=== PATIENT | female | born 1980 | race Asian ===

== ENCOUNTER 2018-02-25 09:38 | Emergency (ER) | payer OTHER, SELFPAY ==
--- NOTE | 2018-02-25 09:42 | ED.WOUNDLAC ---
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 She was wearing gloves in grabbed what was likely a used diabetic went set and was poked in her finger which then bled. Her right thumb is what was affected and she had copious washing prior to her arrival. She was sent by her work place for blood borne pathogen panel Onset (ago): hour(s) Extremity Location: Right: hand Place: work Patient tetanus UTD: Yes Context: accidental Associated symptoms: none Related Data Previous Rx's Medication Instructions Recorded ketorolac 10 mg PO Q6HP PRN #15 tab 03/12/17 ondansetron [Zofran ODT] 4 mg SUBLINGUAL Q6HP PRN #20 odt 03/12/17 tamsulosin [Flomax] 0.4 mg PO QDAY #10 cap 03/12/17 Allergies Allergy/AdvReac Type Severity Reaction Status Date / Time No Known Allergies Allergy Uncoded 12/27/17 12:45 Review of Systems Review of Systems All systems reviewed & are unremarkable except as noted in HPI and below Constitutional Denies chills, Denies fever(s), Denies lethargy and Denies weakness Eyes Denies change in vision, Denies eye discharge, Denies irritation and Denies loss of vision ENT Ears, Nose, Mouth, and Throat: Denies change in voice, Denies neck pain and Denies sore throat Cardiovascular Denies chest pain, Denies irregular heart rhythm, Denies lightheadedness, Denies palpitations, Denies dyspnea, Denies dyspnea on exertion and Denies orthopnea Respiratory Denies cough, Denies dyspnea, Denies dyspnea on exertion and Denies wheezing Gastrointestinal Gastrointestinal: Denies abdominal pain, Denies change in bowel habits, Denies diarrhea, Denies nausea and Denies vomiting Genitourinary Denies hematuria, Denies flank pain, Denies urinary incontinence and Denies urinary urgency Musculoskeletal Denies neck pain Integumentary/Breasts Denies pruritus, Denies erythema, Denies rash and Reports wounds Comments: Very small puncture wound right thumb Neurologic Denies confusion, Denies loss of vision and Denies weakness Psychiatric Denies anxiety, Denies confusion, Denies depression, Denies homicidal ideation and Denies suicidal ideation Endocrine Denies palpitations Hematologic/Lymphatic Denies easy bruising Allergic/Immunologic Denies wheezing PFSH Social History Smoking Status: Never smoker Exam Narrative Exam Narrative: Pleasant 37-year-old female in no obvious distress Initial Vital Signs Initial Vital Signs: Vital Signs Temperature 96.7 F L 02/25/18 09:47 Pulse Rate 89 02/25/18 09:47 Respiratory Rate 18 02/25/18 09:47 Blood Pressure 127/86 H 02/25/18 09:47 Pulse Oximetry 98 02/25/18 09:47 Const General: cooperative and well developed Nutritional Appearance: well nourished Orientation: alert, awake, oriented x3 and not confused HENMT Head: normocephalic and atraumatic Ears: external ears normal and TM's normal bilaterally Nose: external nose normal and No nasal discharge Face and sinus: sinuses nontender, face symmetric, no sinus tenderness and No dry mucous membranes Mouth: oral mucosae normal and moist mucous membranes Teeth and gingiva: dentition normal Throat: tonsils normal and uvula midline Resp Effort & Inspection: normal respiratory effort, able to speak in complete sentences, no respiratory distress and no use of accessory muscles Auscultation: clear to auscultation bilaterally, no rales, no rhonchi and no wheezes GI Inspection: non-distended Palpation: soft, no hepatosplenomegaly, No guarding, No pulsatile mass and No tender Auscultation: normal bowel sounds Extrem Right upper extremity: hand (Very small, almost imperceptible puncture to the pad of her right thumb. No active bleeding or pain) Course Reevaluation(s) Reevaluation #1: Patient does not meet significant blood borne pathogen exposure per our criteria. She was wearing gloves and the needle stick was with a Saman set (solid needle), however I discussed with the triage nurse at [facility] whom says the expectation was that the panel be performed. I did not recommend HIV prophylaxis to the patient Vital Signs - 8 hr 02/25/18 09:47 Temperature 96.7 F L Pulse Rate 89 Respiratory Rate 18 Blood Pressure 127/86 H Pulse Oximetry 98 MDM - Wound/Laceration Lab Data Lab Results 02/25/18 02/25/18 Range/Units 10:25 10:25 ALT 50 (9-52) IU/L Hep Bs Antigen Negative (NEGATIVE) s/c Hepatitis C Antibody Negative (NEGATIVE) s/c HIV 1&2 Antibody Negative (NEGATIVE) Discharge Plan Departure Patient Disposition: Home, Self-Care Clinical Impression: Accidental needlestick injury with exposure to body fluid Discharge Date/Time: 02/25/18 10:30 Interventions: ED Discharge Assessment Last Done: 02/25/18 10:35 Instructions: DI for Accidental Exposure to Body Fluids Prescriptions: No Action ketorolac 10 MG tablet 10 mg PO Q6HP PRNQty: 15 RF: 0 tamsulosin [Flomax] 0.4 MG capsule,extended release 24hr 0.4 mg PO QDAY Qty: 10 RF: 0 ondansetron [Zofran ODT] 4 MG tablet,disintegrating 4 mg Sublingual Q6HP PRNQty: 20 RF: 0
[2018-02-25 09:47] VITALS: BP 127/86; PULSE 89; RESP 18; TEMP 35.9; O2SAT 98; BMI 24.7
[2018-02-25 10:47] LABS: Alanine Aminotransferase 50 IU/L (9-52)
[2018-02-25 11:21] LABS: Hepatitis B Surface Antigen NEGATIVE s/c (NEGATIVE)
[2018-02-25 11:37] LABS: HIV 1 and 2 Antibody NEGATIVE (NEGATIVE); Hep C Virus Ab w/Reflex Quant NEGATIVE s/c (NEGATIVE)
[2018-02-27 15:31] LABS: Hepatitis B Surf Ab Qualitativ Nonreactive (Nonreactive)
== END 2018-02-25 10:30 | disposition home or self-care (01) ==
LOC: ED 10:32
PROVIDERS: Emergency Provider Emergency Medicine
DX: S61.031A Puncture wound without foreign body of right thumb without damage to nail, initial encounter (principal); W46.0XXA Contact with hypodermic needle, initial encounter; Y99.0 Civilian activity done for income or pay
CPT/HCPCS: 36415; 84460; 86703; 86706; 86803; 87340; 99283

== ENCOUNTER 2018-12-29 11:46 | Emergency (ER) | payer OTHER, SELFPAY ==
[2018-12-29 11:55] VITALS: BP 135/90; PULSE 106; RESP 18; TEMP 37.7; O2SAT 99
--- NOTE | 2018-12-29 12:07 | ED.BACK ---
HPI - Back Pain/Injury <Shea Naik PA-C - Last Filed: 12/29/18 17:27> General Chief Complaint: Back Pain/Injury Stated Complaint: fall, pain in lower back and down legs, on rt side Time Seen by Provider: 12/29/18 12:07 Source: patient Mode of arrival: ambulatory Limitations: no limitations History of Present Illness HPI Narrative: This healthy 38-year-old female comes in due to right hip pain after a fall yesterday. Her right foot slipped out from under her and she fell onto a hard floor mainly on her posterior hip area. She states that she usually can get up quickly but this was quite painful and needed her to help her out. Since then she has had persistent pain exacerbated by movement and also somewhat with sitting. She can feel is a little bit in her low back but mostly hip. She denies weakness or paresthesia in the leg, she is able to walk. She states she also noticed some dysuria this morning and has history of kidney stones so wonders if related to that. She denies any frequency or urgency. Denies any hematuria. She denies any nausea or vomiting. She has not had any fever at home. She took 200 mg of ibuprofen earlier for pain. Related Data Previous Rx's Medication Instructions Recorded ketorolac 10 mg PO Q6HP PRN #15 tab 03/12/17 ondansetron [Zofran ODT] 4 mg SUBLINGUAL Q6HP PRN #20 odt 03/12/17 tamsulosin [Flomax] 0.4 mg PO QDAY #10 cap 03/12/17 cyclobenzaprine 10 mg PO TID #20 tab 12/29/18 ibuprofen 800 mg PO Q8H PRN #30 tab 12/29/18 sulfamethoxazole-trimethoprim 1 tab PO Q12H #10 tab 12/29/18 [Bactrim DS] Allergies Allergy/AdvReac Type Severity Reaction Status Date / Time No Known Drug Allergies Allergy Verified 12/29/18 12:31 Review of Systems <Shea Naik PA-C - Last Filed: 12/29/18 17:27> Review of Systems ROS Unobtainable: All systems reviewed & are unremarkable except as noted in HPI and below PFSH <Shea Naik PA-C - Last Filed: 12/29/18 17:27> Medical History (Updated 12/29/18 @ 14:19 by Shea Naik PA-C) No pertinent family history (Chronic) Kidney stone (Resolved) Surgical History (Updated 12/29/18 @ 12:23 by Shea Naik PA-C) No pertinent past surgical history (Chronic) Social History Smoking Status: Never smoker Social History Smoking Status: Never smoker Exam <Shea Naik PA-C - Last Filed: 12/29/18 17:27> Narrative Exam Narrative: GENERAL APPEARANCE: Patient sitting comfortably, in no distress. PULMONARY: Lungs clear to auscultation bilaterally CV: Regular rhythm regular without murmur, normal S1 and S2, no S3 or S4 ABDOMEN: Soft, nondistended, +bowel sounds x4 quadrants, mild suprapubic tenderness, no tenderness elsewhere, no CVAT MUSCULOSKELETAL: No point tenderness over the lumbar or sacral spine. Full AROM of trunk with mild tenderness at and point. She is a little bit stiff with sit to stand and walking. Lower extremity strength 5/5 bilateral hip flexors, knee extensors, foot plantar flexion. Negative modified straight leg raise. Moderate tenderness over the right posterior and lateral hip and SI. Full flexion of the hip but tender with passive inversion and eversion, negative Ace's test NEUROLOGIC: Lower extremity sensation grossly intact Initial Vital Signs Initial Vital Signs: Vital Signs Temperature 99.9 F H 12/29/18 11:55 Pulse Rate 106 H 12/29/18 11:55 Respiratory Rate 18 12/29/18 11:55 Blood Pressure 135/90 12/29/18 11:55 Pulse Oximetry 99 12/29/18 11:55 <Sulaiman Harvey DO - Last Filed: 12/29/18 17:54> Initial Vital Signs Initial Vital Signs: Vital Signs Temperature 99.9 F H 12/29/18 11:55 Pulse Rate 106 H 12/29/18 11:55 Respiratory Rate 18 12/29/18 11:55 Blood Pressure 135/90 12/29/18 11:55 Pulse Oximetry 99 12/29/18 11:55 Course <Shea Naik PA-C - Last Filed: 12/29/18 17:27> Orders Ordered: ED Orders 12/29/18 12:00 Urine Culture Stat Urine Microscopic Stat 12/29/18 12:18 XR hip w pel if done RT 2V Stat Discontinued Medications Sodium Chloride (Normal Saline 0.9%) 1,000 mls @ 1,000 mls/hr IV BOLUS ONE Stop: 12/29/18 14:27 Last Admin: 12/29/18 13:40 Dose: Not Given Ibuprofen (Advil) 800 mg PO NOW ONE Stop: 12/29/18 12:19 Last Admin: 12/29/18 12:41 Dose: 800 mg Vital Signs - 8 hr 12/29/18 11:55 12/29/18 14:17 12/29/18 14:26 Temperature 99.9 F H 99.0 F Pulse Rate 106 H 74 Respiratory Rate 18 18 Blood Pressure 135/90 Blood Pressure [Left Arm] 112/65 Pulse Oximetry 99 98 <Sulaiman Harvey DO - Last Filed: 12/29/18 17:54> Orders Ordered: ED Orders 12/29/18 12:00 Urine Culture Stat Urine Microscopic Stat 12/29/18 12:18 XR hip w pel if done RT 2V Stat Discontinued Medications Sodium Chloride (Normal Saline 0.9%) 1,000 mls @ 1,000 mls/hr IV BOLUS ONE Stop: 12/29/18 14:27 Last Admin: 12/29/18 13:40 Dose: Not Given Ibuprofen (Advil) 800 mg PO NOW ONE Stop: 12/29/18 12:19 Last Admin: 12/29/18 12:41 Dose: 800 mg Vital Signs - 8 hr 12/29/18 11:55 12/29/18 14:17 12/29/18 14:26 Temperature 99.9 F H 99.0 F Pulse Rate 106 H 74 Respiratory Rate 18 18 Blood Pressure 135/90 Blood Pressure [Left Arm] 112/65 Pulse Oximetry 99 98 MDM - Back Pain/Injury <Shea Naik PA-C - Last Filed: 12/29/18 17:27> Lab Data Lab Results 12/29/18 Range/Units 12:00 Urine RBC None seen (0-5/HPF) Urine WBC 5-10/hpf H (0-5/HPF) Ur Squamous Epith Cells 5-10 /hpf H (0-5/HPF) Urine Bacteria Moderate (10-30) H (None) Urine Mucus 1+ H (Negative) Urine Yeast 1-5/hpf H (None) Urine Sperm Occ Ur Culture Indicated? Specimen cultured Point of Care Testing Test Results Negative Urine Dip Bedside Urine Glucose Negative Bedside Urine Bilirubin - Negative Bedside Urine Ketone - Negative Urine Specific [employer] 1.030 Bedside Urine Occult Blood - Negative Bedside Urine pH 6.0 Bedside Urine Protein - Negative Bedside Urine Urobilinogen +/- 1mg Bedside Urine Nitrite - Negative Bedside Urine Leukocytes ++ 125 Esterase Imaging Data hip: Radiologist's impression: 27 Shea Naik PA-C Find Patient Imaging Victor Hugo Lorenz 38 F 1980 ACTIVITY DATE EXAM STATUS AUTHOR 12/29/18 12:18 [place] [address] XRay Report Signed Patient: Jessika LorenzR#: [id number] : 1980Acct:[id number] Age/Sex: 38 / FDate of Service: 12/29/18 Loc: ED Accession Number: [id number] Procedure: XR hip w pel if done RT 2V Ordering Provider: Shea Naik P.A-C PROCEDURE: XR HIP W PEL IF DONE RT 2V INDICATIONS: fall, posterior/lateral pain TECHNIQUE: AP pelvis with lateral view(s) of the right hip(s). COMPARISON: None. FINDINGS: Bones: No fractures or dislocations. Pelvic ring appears intact. No suspicious bony lesions. Soft tissues: The visualized bowel gas pattern is normal. No suspicious soft tissue calcifications. Intrauterine device is noted left of midline within the pelvis. IMPRESSION: No visualized acute fracture or dislocation. However, if clinical concern and/or pain persist, short interval imaging followup in 7-10 days is recommended, as occult injury cannot be definitively excluded. Dictated by: Camila Loya M.D. on 12/29/2018 at 13:23 Approved by: Camila Loya M.D. on 12/29/2018 at 13:23 <Sulaiman Harvey DO - Last Filed: 12/29/18 17:54> Lab Data Lab Results 12/29/18 Range/Units 12:00 Urine RBC None seen (0-5/HPF) Urine WBC 5-10/hpf H (0-5/HPF) Ur Squamous Epith Cells 5-10 /hpf H (0-5/HPF) Urine Bacteria Moderate (10-30) H (None) Urine Mucus 1+ H (Negative) Urine Yeast 1-5/hpf H (None) Urine Sperm Occ Ur Culture Indicated? Specimen cultured Point of Care Testing Test Results Negative Urine Dip Bedside Urine Glucose Negative Bedside Urine Bilirubin - Negative Bedside Urine Ketone - Negative Urine Specific [employer] 1.030 Bedside Urine Occult Blood - Negative Bedside Urine pH 6.0 Bedside Urine Protein - Negative Bedside Urine Urobilinogen +/- 1mg Bedside Urine Nitrite - Negative Bedside Urine Leukocytes ++ 125 Esterase Discharge Plan Departure Patient Disposition: Home Clinical Impression: UTI (urinary tract infection) Qualifiers: Urinary tract infection type: acute cystitis Hematuria presence: without hematuria Qualified Code(s): N30.00 - Acute cystitis without hematuria Strain of hip and thigh Qualifiers: Encounter type: initial encounter Laterality: right Qualified Code(s): S76.011A - Strain of muscle, fascia and tendon of right hip, initial encounter Discharge Date/Time: 12/29/18 14:26 Interventions: ED Discharge Assessment Last Done: 12/29/18 14:26 Instructions: DI for Urinary Tract Infection (UTI), DI for Muscle Strain Activity Restrictions/Additional Instructions: Please return as we talked about if you have any acutely worsening symptoms or new symptoms such as vomiting or fever. Otherwise, please start the antibiotic for urinary infection as soon as you pick it up. Take the ibuprofen routinely every 8 hours to help with pain and inflammation and you can use ice and heat as needed. You can take the muscle relaxant cyclobenzaprine, 1/2 to 1 tab every 8 hours as needed but remember this can make you sleepy and not to drive. Please stay off of work for the next couple of days and follow up with your PCP on Monday or Monday to assess your progress and determine whether further treatment is needed. I sent her prescriptions to [facility] in [place]. Prescriptions: New cyclobenzaprine 10 mg tablet 10 mg PO TID Qty: 20 RF: 0 ibuprofen 800 mg tablet 800 mg PO Q8H PRN (Reason: pain in leg/hip) Qty: 30 RF: 0 sulfamethoxazole-trimethoprim [Bactrim DS] 800-160 mg tablet 1 tab PO Q12H Qty: 10 RF: 0 No Action ketorolac 10 MG tablet 10 mg PO Q6HP PRNQty: 15 RF: 0 tamsulosin [Flomax] 0.4 MG capsule,extended release 24hr 0.4 mg PO QDAY Qty: 10 RF: 0 ondansetron [Zofran ODT] 4 MG tablet,disintegrating 4 mg Sublingual Q6HP PRNQty: 20 RF: 0 Referrals: [facility] [Provider Group] Stand Alone Forms: Work Release Note <Sulaiman Harvey, DO - Last Filed: 12/29/18 17:54> Cosign ED Attending Lu Attestation: I was immediately available in the department for consultation. Documentation has been reviewed. I agree with assessment and plan.
--- NOTE | 2018-12-29 12:18 | DI.RAD.S_ITS ---
PROCEDURE: XR HIP W PEL IF DONE RT 2V INDICATIONS: fall, posterior/lateral pain TECHNIQUE: AP pelvis with lateral view(s) of the right hip(s). COMPARISON: None. FINDINGS: Bones: No fractures or dislocations. Pelvic ring appears intact. No suspicious bony lesions. Soft tissues: The visualized bowel gas pattern is normal. No suspicious soft tissue calcifications. Intrauterine device is noted left of midline within the pelvis. IMPRESSION: No visualized acute fracture or dislocation. However, if clinical concern and/or pain persist, short interval imaging followup in 7-10 days is recommended, as occult injury cannot be definitively excluded. Dictated by: Camila Loya M.D. on 12/29/2018 at 13:23 Approved by: Camila Loya M.D. on 12/29/2018 at 13:23
[2018-12-29 12:27] LABS: Bacteria Urine Moderate (10-30); Mucus Urine 1+ (Negative); RBC Urine None Seen (0-5/HPF); Squamous Epithelial Cell Urine 5-10 /HPF (0-5/HPF); WBC Urine 5-10/HPF (0-5/HPF)
[2018-12-29 12:29] LABS: Culture Indicated Urine Specimen Cultured; Sperm Urine OCC
[2018-12-29] MEDS: IBUPROFEN 400 MG TABLET 800 MG PO (12:41)
[2018-12-29 14:17] VITALS: BP 112/65; PULSE 74; RESP 18; O2SAT 98
[2018-12-29 14:26] VITALS: TEMP 37.2
== END 2018-12-29 14:26 | disposition home or self-care (01) ==
PROVIDERS: Emergency Medicine; Emergency Provider Internal Medicine
DX: S76.011A Strain of muscle, fascia and tendon of right hip, initial encounter (principal); N30.00 Acute cystitis without hematuria; W19.XXXA Unspecified fall, initial encounter
CPT/HCPCS: 73502; 81003; 81015; 81025; 87086; 99283

== ENCOUNTER 2023-12-02 21:11 | Emergency (ER) | payer OTHER, SELFPAY ==
[2023-12-02] VITALS (8 sets, daily range): BP systolic 103–186; BP diastolic 55–94; PULSE 85–116; RESP 16–18; TEMP 37.1; O2SAT 96–98; BMI 29.2
--- NOTE | 2023-12-02 21:24 | PC.NURSE ---
pt c/o frequency and dysuria that started today with abd pain and nausea
[2023-12-02 21:38] LABS: Add Manual Diff / Slide Review NO; Basophils Absolute Auto 100 /uL (0-100); Basophils Percent Auto 0.8 % (0-2); Eosinophils Absolute Auto 100 /uL (0-450); Eosinophils Percent Auto 1.1 % (2-4); Hematocrit 36.3 % (36-46); Hemoglobin 12.2 g/dL (12.0-16.0); Lymphocytes Absolute Auto 3000 /uL (1100-4500); Lymphocytes Percent Auto 28.9 % (25-40); Mean Corpuscular HGB Conc 33.5 % (30-36); Mean Corpuscular Hemoglobin 26.6 PG (26-34); Mean Corpuscular Volume 79.3 fL (80-100); Monocytes Absolute Auto 700 /uL (0-900); Monocytes Percent Auto 7.1 % (3-14); Neutrophils Absolute Auto 6400 /uL (1500-7000); Neutrophils Percent Auto 62.1 % (50-75); Platelet Count 224 X10^3/uL (150-400); Red Blood Cell Count 4.57 X10^6/uL (4.0-5.2); Red Cell Distribution Width 13.9 % (11.6-14.8); White Blood Cell Count 10.3 X10^3/uL (4.5-11.0)
[2023-12-02 21:46] LABS: Alanine Aminotransferase 22 IU/L (<35); Albumin 4.5 g/dL (3.5-5.0); Albumin Globulin Ratio 1.2 (1.0-2.8); Alkaline Phosphatase 65 U/L (38-126); Aspartate Aminotransferase 22 IU/L (14-36); Bilirubin Total 0.4 mg/dL (0.2-1.3); Blood Urea Nitrogen 16 mg/dL (7-17); Calcium 9.7 mg/dL (8.4-10.2); Carbon Dioxide 25 mmol/L (22-32); Chloride 107 mmol/L (98-107); Estimated Glomerular Filt Rate > 60 mL/min (>60); Globulin 3.8 g/dL (1.7-4.1); Glucose 122 mg/dL (70-100); HEMOLYSIS < 15 (0-50); Lipase 90 U/L (23-300); Potassium 3.4 mmol/L (3.4-5.1); Sodium 140 mmol/L (137-145); Total Protein 8.3 g/dL (6.3-8.2)
--- NOTE | 2023-12-02 22:51 | ED.GENADULT ---
HPI - General Adult General Chief complaint: Urogenital-Female Stated complaint: sternum pain/abd pain/frequent urination Time Seen by Provider: 12/02/23 22:50 Source: patient Mode of arrival: Ambulatory History of Present Illness HPI narrative: 43-year-old woman with no significant medical history presents with mild malaise and significant urinary frequency and dysuria over the course of today. She would 2 episodes of emesis after her 12 hour shift today noted that her heart rate has been slightly elevated and she is complaining of mild diffuse abdominal pain. She is developing a low-grade headache but does not complain of fevers. No palpitations, dyspnea or overt chest pain. Related Data Previous Rx's Medication Instructions Recorded ketorolac 10 mg tablet 10 mg PO Q6HP PRN #15 tabs 03/12/17 ondansetron 4 mg disintegrating 4 mg sublingual Q6HP PRN ##20 03/12/17 tablet (Zofran ODT) tamsulosin 0.4 mg capsule (Flomax) 0.4 mg PO QDAY #10 caps 03/12/17 cyclobenzaprine 10 mg tablet 10 mg PO TID #20 tabs 12/29/18 ibuprofen 800 mg tablet 800 mg PO Q8H PRN pain in leg/hip 12/29/18 #30 tabs sulfamethoxazole 800 1 tab PO Q12H UTI #10 tabs 12/29/18 mg-trimethoprim 160 mg tablet (Bactrim DS) cephalexin 500 mg capsule 500 mg PO TID #15 caps 12/03/23 Allergies Allergy/AdvReac Type Severity Reaction Status Date / Time No Known Drug Allergies Allergy Verified 12/29/18 12:31 Review of Systems Review of Systems Narrative: Pertinent positive and negative findings as per HPI Patient History Medical History (Updated 12/03/23 @ 01:54 by Alyse Bravo MD) No pertinent family history Kidney stone Surgical History (Updated 12/29/18 @ 12:23 by Shea Naik PA-C) No pertinent past surgical history Social History Smoking Status: Never smoker Smoking Status: Never smoker Substance Use Type: does not use Exam Initial Vital Signs Initial Vital Signs: Vital Signs Temperature 98.7 F 12/02/23 21:15 Pulse Rate 115 H 12/02/23 21:15 Respiratory Rate 16 12/02/23 21:15 Blood Pressure 186/94 H 12/02/23 21:15 Pulse Oximetry 96 12/02/23 21:15 Oxygen Delivery Method Room Air 12/02/23 21:15 General: Healthy appearing, in no acute distress. Able to give a complete and coherent history. Well-nourished well-developed HEENT: Moist mucous membranes, normal sclera with reactive pupils, Respiratory: Lungs are clear to auscultation, no wheezing no rales no rhonchi. Full and symmetrical air movement Cardiac: Regular rate and rhythm no murmurs no bruits Abdomen: Soft, diffuse tenderness with for tenderness over the epigastrium and suprapubic area. Mild bilateral flank pain. Skin: Warm and dry, no rashes Neurologic: Grossly neurologically intact with no obvious asymmetries or abnormalities Extremities: No trauma, well perfused Psych: Cooperative, appropriate insight and affect Course Orders Ordered: ED Orders 12/02/23 21:24 EKG-12 Lead Stat 12/02/23 21:25 Complete Blood Count AUTO DIFF Stat Comprehensive Metabolic Panel Stat Lipase Stat 12/03/23 00:43 US abdomen limited Stat Ondansetron HCl (Ondansetron 4 Mg Odt) 4 mg PO NOW PRN PRN Reason: Nausea And Vomiting Ondansetron HCl (Ondansetron 4 Mg/2 Ml Inj) 4 mg IV NOW PRN PRN Reason: Nausea And Vomiting Discontinued Medications Sodium Chloride (Normal Saline 0.9%) 1,000 mls @ 1,000 mls/hr IV BOLUS ONE Stop: 12/02/23 23:55 Last Infusion: 12/03/23 00:19 Dose: Infused Documented By: Admin: 12/02/23 23:06 Dose: 1,000 mls/hr Documented By: KARIN Ceftriaxone Sodium 2,000 mg/ (Sodium Chloride) 100 mls @ 200 mls/hr IV NOW ONE Stop: 12/02/23 22:57 Last Infusion: 12/02/23 23:40 Dose: Infused Documented By: Admin: 12/02/23 23:07 Dose: 200 mls/hr Documented By: KARIN Ketorolac Tromethamine (Ketorolac 30 Mg/Ml Vial) 15 mg IV NOW ONE Stop: 12/03/23 00:40 Last Admin: 12/03/23 01:17 Dose: 15 mg Documented By: KARIN Ondansetron HCl (Ondansetron 4 Mg/2 Ml Inj) 4 mg IV NOW ONE Stop: 12/02/23 22:57 Last Admin: 12/02/23 23:08 Dose: 4 mg Documented By: KARIN Vital Signs Vital signs: Vital Signs - 8 hr 12/02/23 21:15 12/02/23 21:18 12/02/23 21:19 Temperature 98.7 F Pulse Rate 115 H Respiratory Rate 16 Blood Pressure 186/94 H 186/94 H Pulse Oximetry 96 97 Oxygen Delivery Method Room Air 12/02/23 21:19 12/02/23 21:30 12/02/23 21:30 Temperature Pulse Rate 116 H 105 H Respiratory Rate 18 Blood Pressure 161/84 H Pulse Oximetry 98 98 Oxygen Delivery Method 12/02/23 22:00 12/02/23 22:00 12/02/23 22:30 Temperature Pulse Rate 98 H Respiratory Rate Blood Pressure 131/63 135/75 Pulse Oximetry 97 Oxygen Delivery Method 12/02/23 22:30 12/02/23 23:00 12/02/23 23:00 Temperature Pulse Rate 100 H 94 H Respiratory Rate 18 16 Blood Pressure 119/59 L Pulse Oximetry 97 97 Oxygen Delivery Method 12/02/23 23:30 12/02/23 23:30 12/03/23 00:00 Temperature Pulse Rate 85 94 H Respiratory Rate Blood Pressure 103/55 L Pulse Oximetry 98 99 Oxygen Delivery Method 12/03/23 00:00 12/03/23 00:30 12/03/23 00:30 Temperature Pulse Rate 102 H Respiratory Rate 18 Blood Pressure 133/74 129/73 Pulse Oximetry 99 Oxygen Delivery Method 12/03/23 01:00 12/03/23 01:00 12/03/23 01:30 Temperature Pulse Rate 89 Respiratory Rate Blood Pressure 117/61 116/76 Pulse Oximetry 97 Oxygen Delivery Method 12/03/23 01:30 Temperature Pulse Rate 83 Respiratory Rate 18 Blood Pressure Pulse Oximetry 98 Oxygen Delivery Method Medical Decision Making Lab Data 12/02/23 21:25 12/02/23 21:25 Labs: Lab Results 12/02/23 Range/Units 21:25 WBC 10.3 (4.5-11.0) X10^3/uL RBC 4.57 (4.0-5.2) X10^6/uL Hgb 12.2 (12.0-16.0) g/dL Hct 36.3 (36-46) % MCV 79.3 L (80-100) fL MCH 26.6 (26-34) PG MCHC 33.5 (30-36) % RDW 13.9 (11.6-14.8) % Plt Count 224 (150-400) X10^3/uL Neut % (Auto) 62.1 (50-75) % Lymph % (Auto) 28.9 (25-40) % [place] % (Auto) 7.1 (3-14) % Eos % (Auto) 1.1 L (2-4) % Baso % (Auto) 0.8 (0-2) % Neut # (Auto) 6400 (7613-8168) /uL Lymph # (Auto) 3000 (6452-4352) /uL [place] # (Auto) 700 (0-900) /uL Eos # (Auto) 100 (0-450) /uL Baso # (Auto) 100 (0-100) /uL Sodium 140 (137-145) mmol/L Potassium 3.4 (3.4-5.1) mmol/L Chloride 107 (98-107) mmol/L Carbon Dioxide 25 (22-32) mmol/L BUN 16 (7-17) mg/dL Creatinine 0.47 L (0.52-1.04) mg/dL Estimated GFR > 60 (>60) mL/min BUN/Creatinine Ratio 34.0 H (6-22) Glucose 122 H (70-100) mg/dL Calcium 9.7 (8.4-10.2) mg/dL Total Bilirubin 0.4 (0.2-1.3) mg/dL AST 22 (14-36) IU/L ALT 22 (<35) IU/L Alkaline Phosphatase 65 (38-126) U/L Total Protein 8.3 H (6.3-8.2) g/dL Albumin 4.5 (3.5-5.0) g/dL Globulin 3.8 (1.7-4.1) g/dL Albumin/Globulin Ratio 1.2 (1.0-2.8) Lipase 90 (23-300) U/L Point of Care Testing Test Results Negative Urine Dip Bedside Urine Glucose Negative Bedside Urine Bilirubin - Negative Bedside Urine Ketone - Negative Urine Specific [place] 1.015 Bedside Urine Occult Blood - Negative Bedside Urine pH 6.0 Bedside Urine Protein - Negative Bedside Urine Urobilinogen - Negative Bedside Urine Nitrite - Negative Bedside Urine Leukocytes - Negative Esterase Point of care testing: Point of Care Testing Test Results Negative Urine Dip Bedside Urine Glucose Negative Bedside Urine Bilirubin - Negative Bedside Urine Ketone - Negative Urine Specific [place] 1.015 Bedside Urine Occult Blood - Negative Bedside Urine pH 6.0 Bedside Urine Protein - Negative Bedside Urine Urobilinogen - Negative Bedside Urine Nitrite - Negative Bedside Urine Leukocytes - Negative Esterase MDM Narrative Medical decision making narrative: CC: Abdominal pain, vomiting, dysuria Data collected from: patient Differential considered: UTI, sepsis, gastritis, gallbladder disease Exam documented above, pertinent findings include: Exam does show mild abdominal tenderness midepigastrium, suprapubic. She does have bilateral flank pain but I believe that this is more general abdominal irritation than true kidney pain. Lab Test results independently reviewed as above. Pertinent findings: CBC is unremarkable Chemistries are reassuring Lipase is not elevated Urine has white cells squamous cells bacteria and yeast. Imaging studies: Preliminary ultrasound result shows a normal gallbladder, no evidence of ductal dilatation or gallstones Treatments: Fluids, Zofran, 2 g of ceftriaxone, IV Toradol Re-evaluation: Went into discuss bladder infection. Patient is complaining of recurrent episode of upper abdominal bandlike pain and tenderness now radiating through to her back as had been present prior to arrival. She also complains of ?waves of weakness? that seemed to be improving overall. Will order an ultrasound and see if she may be developing cholecystitis. Discussion: 43-year-old woman with general malaise, dysuria and urinalysis that does suggest bladder infection. She has mild diffuse tenderness certainly does not have an acute abdomen. Ultrasound does not suggest gallstones or cholecystitis. She is given ceftriaxone in the emergency department and will have her complete a course of Keflex. Urine will be cultured. At this point I do not think that additional imaging is required. I am not seeing signs of sepsis and if she is beginning to develop a pyelonephritis she still is being appropriately treated with a longer course of the antibiotics. Discharge Plan Departure Patient Disposition: Home Clinical Impression: Urinary tract infection Qualifiers: Urinary tract infection type: acute cystitis Hematuria presence: with hematuria Qualified Code(s): N30.01 - Acute cystitis with hematuria Instructions: DI for Urinary Tract Infection (UTI) Activity Restrictions/Additional Instructions: Thank you for coming in today I do not have a full explanation for all of your symptoms, certainly fatigue could be contributing. You do clearly have a bladder infection and I did treat that with antibiotics in the emergency department and have given you a prescription for 5 additional days of antibiotics to continue. With your workup in the ER, I did not see any signs of overwhelming infection, acute kidney problems or pyelonephritis, no gallbladder issues or gallstones and there is no indication for additional workup or hospitalization at this time Please do finish the antibiotics for the bladder infection, I suspect that rest will help as well. If you find that you are getting worse or develop any new symptoms, please feel free to return to the emergency department for further evaluation. Prescriptions: New cephalexin 500 mg capsule 500 mg PO TID Qty: 15 0RF No Action ketorolac 10 MG tablet 10 mg PO Q6HP PRNQty: 15 0RF tamsulosin [Flomax] 0.4 MG capsule,extended release 24hr 0.4 mg PO QDAY Qty: 10 0RF ondansetron [Zofran ODT] 4 MG tablet,disintegrating 4 mg Sublingual Q6HP PRNQty: 20 0RF cyclobenzaprine 10 mg tablet 10 mg PO TID Qty: 20 0RF Rx Instructions: 1/2-1 po q8h prn muscle spasm, do not drive ibuprofen 800 mg tablet 800 mg PO Q8H PRN (Reason: pain in leg/hip) Qty: 30 0RF sulfamethoxazole-trimethoprim [Bactrim DS] 800-160 mg tablet 1 tab PO Q12H Qty: 10 0RF Stand Alone Forms: Patient Portal/API
[2023-12-02] MEDS: SODIUM CHLORIDE 0.9% 1,000 ML 1000 ML IV (23:06)
[2023-12-02] MEDS: cefTRIAXone 2,000 MG in SODIUM CHLORIDE 0.9% 100 ML 200 MG IV (23:07)
[2023-12-02] MEDS: ONDANSETRON 4 MG/2 ML INJ IV (23:08)
[2023-12-03] VITALS: BP 133/74; PULSE 94; O2SAT 99
[2023-12-03 00:30] VITALS: BP 129/73; PULSE 102; RESP 18; O2SAT 99
--- NOTE | 2023-12-03 00:43 | DI.US.S_ITS ---
PROCEDURE: US ABDOMEN LIMITED INDICATIONS: RUQ tenderness TECHNIQUE: Real-time focused scanning was performed of the abdomen, with image documentation. COMPARISON: None. FINDINGS: The liver is normal in size but demonstrates increased echotexture consistent with fatty infiltration. The gallbladder is normal, with no evidence of adjacent free fluid or tenderness during sonographic palpation. The common hepatic duct and common bile duct are normal in caliber. The pancreas visualized appears normal. There is slight prominence of the collecting system on the right, but no calculus is seen. IMPRESSION: Increased echotexture throughout the liver, consistent with fatty infiltration. No gallbladder or bile duct abnormality is seen. Mild prominence of the right renal collecting system, potentially a normal variant for this patient. If a urinary tract stone is clinically suspected distally CT would provide accurate method for detecting a distal ureteral stone. Dictated by: Riaz Duron M.D. on 12/03/2023 at 1:56 Approved by: Riaz Duron M.D. on 12/03/2023 at 1:59
[2023-12-03 01:00] VITALS: BP 117/61; PULSE 89; O2SAT 97
[2023-12-03] MEDS: KETOROLAC 30 MG/ML VIAL 15 MG IV (01:17)
[2023-12-03 01:30] VITALS: BP 116/76; PULSE 83; RESP 18; O2SAT 98
== END 2023-12-03 02:03 | disposition home or self-care (01) ==
PROVIDERS: Emergency Provider Emergency Medicine
DX: N30.01 Acute cystitis with hematuria (principal); R51.9 Headache, unspecified
CPT/HCPCS: 36415; 76705; 80053; 81003; 81025; 83690; 85025; 93005; 93010; 96365; 96375; 99284; J0696; J1885; J2405

== ENCOUNTER 2024-10-05 18:12 | Emergency (ER) | payer OTHER, SELFPAY ==
[2024-10-05 18:29] VITALS: BP 176/84; PULSE 119; RESP 22; TEMP 36.6; O2SAT 96; BMI 30.2
--- NOTE | 2024-10-05 18:41 | ED.URI ---
HPI - URI/Sore Throat General Chief Complaint: Upper Respiratory Symptoms Stated Complaint: Dry cough, body aches, coughing Time Seen by Provider: 10/05/24 18:21 Source: patient Mode of arrival: Ambulatory History of Present Illness HPI Narrative: 43yoF with no significant PMH presents from home with son for 3 days of headache, bodyaches, nonproductive cough. Numerous sick contacts at work. Has been taking nyquil and mucinex for symptoms, which she states normally helps her feel better by now, however she has continued to feel poorly. Son at home sick with upper respiratory symptoms as well. States that once or twice she has coughed so much she has thrown up. Related Data Previous Rx's Medication Instructions Recorded ketorolac 10 mg tablet 10 mg PO Q6HP PRN #15 tabs 03/12/17 ondansetron 4 mg disintegrating 4 mg sublingual Q6HP PRN ##20 03/12/17 tablet (Zofran ODT) tamsulosin 0.4 mg capsule (Flomax) 0.4 mg PO QDAY #10 caps 03/12/17 cyclobenzaprine 10 mg tablet 10 mg PO TID #20 tabs 12/29/18 ibuprofen 800 mg tablet 800 mg PO Q8H PRN pain in leg/hip 12/29/18 #30 tabs sulfamethoxazole 800 1 tab PO Q12H UTI #10 tabs 12/29/18 mg-trimethoprim 160 mg tablet (Bactrim DS) cephalexin 500 mg capsule 500 mg PO TID #15 caps 12/03/23 benzonatate 200 mg capsule 200 mg PO BID-TID PRN cough #60 10/05/24 caps Allergies Allergy/AdvReac Type Severity Reaction Status Date / Time No Known Drug Allergies Allergy Verified 12/29/18 12:31 Patient History Medical History No pertinent family history Kidney stone Surgical History No pertinent past surgical history Social History Smoking Status: Never smoker Smoking Status: Never smoker Exam Initial Vital Signs Initial Vital Signs: Vital Signs Temperature 97.9 F 10/05/24 18:29 Pulse Rate 119 H 10/05/24 18:29 Respiratory Rate 22 10/05/24 18:29 Blood Pressure 176/84 H 10/05/24 18:29 Pulse Oximetry 96 10/05/24 18:29 Oxygen Delivery Method Room Air 10/05/24 18:29 Const: Awake, alert, no acute distress, nontoxic appearing HEENT: Mucous membranes moist, no pharyngeal erythema or edema Cardiac: Tachycardia, regular rhythm RESP: unlabored, clear bilaterally, no wheezing Skin: Warm, Dry, intact, no rashes Neuro: AO x3, CN II-XII grossly intact, moves all extremities Course Orders Ordered: Discontinued Medications Benzonatate (Benzonatate 100 Mg Capsule) 200 mg PO NOW ONE Stop: 10/05/24 18:40 Last Admin: 10/05/24 19:19 Dose: 200 mg Documented By: DEBORAH Dexamethasone (Dexamethasone 10 Mg/Ml Vial) 10 mg PO NOW ONE Stop: 10/05/24 20:17 Last Admin: 10/05/24 20:25 Dose: 10 mg Documented By: DEBORAH Ketorolac Tromethamine (Ketorolac 30 Mg/Ml Vial) 30 mg IM NOW ONE Stop: 10/05/24 18:40 Last Admin: 10/05/24 19:19 Dose: 30 mg Documented By: DEBORAH Vital Signs Vital signs: Vital Signs - 8 hr 10/05/24 18:29 Temperature 97.9 F Pulse Rate 119 H Respiratory Rate 22 Blood Pressure 176/84 H Pulse Oximetry 96 Oxygen Delivery Method Room Air MDM - URI/Sore Throat Differential Diagnosis Differential diagnosis: Likely upper respiratory infection, viral infection and bronchitis Lab Data Labs: Lab Results 10/05/24 Range/Units 19:17 SARS-CoV-2 (PCR) Negative (Negative) Influenza A (RT-PCR) Flu a negative (NEGATIVE) Influenza B (RT-PCR) Flu b negative (NEGATIVE) RSV (PCR) Negative (Negative) MDM Narrative Medical decision making narrative: Well-appearing patient with 3 days of symptoms. Exam otherwise benign, lungs are clear to auscultation bilaterally, saturating well on room air, conversational without dyspnea. Patient initially tachycardic in the exam room, however after resting in ED bed and receiving IM Toradol for pain relief the patient's heart rate improved to normal limits. Flu, covid, rsv swabs negative. Patient given decadron x1, tessalon perles sent to pharmacy of choice. Supportive care measures counseled for home. Discharge Plan Departure Patient Disposition: Home Clinical Impression: Upper respiratory infection Instructions: DI for Viral Upper Respiratory Infection -- Adult Activity Restrictions/Additional Instructions: Today you tested negative for flu, COVID, RSV. There are still many viruses active right now that could cause your symptoms. These are all treated the same way. Make sure that you stay hydrated and drink lots of fluids. Take 1000 mg of Tylenol and 400 mg of ibuprofen per label instructions for headache or body aches. Cough medication has been sent to your pharmacy. Prescriptions: New benzonatate 200 mg capsule 200 mg PO BID-TID PRN (Reason: cough) Qty: 60 0RF No Action ketorolac 10 MG tablet 10 mg PO Q6HP PRNQty: 15 0RF tamsulosin [Flomax] 0.4 MG capsule,extended release 24hr 0.4 mg PO QDAY Qty: 10 0RF ondansetron [Zofran ODT] 4 MG tablet,disintegrating 4 mg Sublingual Q6HP PRNQty: 20 0RF cephalexin 500 mg capsule 500 mg PO TID Qty: 15 0RF cyclobenzaprine 10 mg tablet 10 mg PO TID Qty: 20 0RF Rx Instructions: 1/2-1 po q8h prn muscle spasm, do not drive ibuprofen 800 mg tablet 800 mg PO Q8H PRN (Reason: pain in leg/hip) Qty: 30 0RF sulfamethoxazole-trimethoprim [Bactrim DS] 800-160 mg tablet 1 tab PO Q12H Qty: 10 0RF Stand Alone Forms: Patient Portal/API/Survey
[2024-10-05] MEDS: BENZONATATE 100 MG CAPSULE 200 MG PO (19:19)
[2024-10-05] MEDS: KETOROLAC 30 MG/ML VIAL IM (19:19)
[2024-10-05 20:09] LABS: Influenza A - CEPHEID Flu A NEGATIVE (NEGATIVE); Influenza B - CEPHEID Flu B NEGATIVE (NEGATIVE); Respiratory Syncytial Virus Negative (Negative)
[2024-10-05 20:12] LABS: COVID-19 CEPHEID 4-PLEX PCR Negative (Negative)
[2024-10-05] MEDS: DEXAMETHASONE 10 MG/ML VIAL PO (20:25)
[2024-10-05 20:30] VITALS: BP 131/76; PULSE 74; RESP 16; O2SAT 97
== END 2024-10-05 20:29 | disposition home or self-care (01) ==
PROVIDERS: Emergency Provider Emergency Medicine
DX: J06.9 Acute upper respiratory infection, unspecified (principal); R05.9 Cough, unspecified
CPT/HCPCS: 0241U; 96372; 99283; J1100; J1885